=== PATIENT | male | born 1970 ===

== ENCOUNTER 2016-05-31 13:37 | Emergency (ER) | payer BC, OTHER ==
[2016-05-31 17:44] VITALS: BP 137/85
--- NOTE | 2016-05-31 18:13 | UC ---
Lower Extremity/Ankle HPI - HPI Summary HPI Summary: patient was kicking a ball, hit the left 5th ote on the wall, it was out of place, and causing a lot of pain, patient pulled it back into place and heard a snap. large amount of bruising and swelling. Able to walk on the foot - History of Current Complaint Chief Complaint: UCLowerExtremity Stated Complaint: LEFT FOOT PAIN Time Seen by Provider: 05/31/16 18:04 Hx Obtained From: Patient Onset/Duration: Sudden Onset, Lasting Days Severity Initially: Severe Severity Currently: Moderate Pain Intensity: 6 Pain Scale Used: 0-10 Numeric Aggravating Factor(s): Standing, Ambulation Alleviating Factor(s): Rest Able to Bear Weight: Yes - Allergies/Home Medications Allergies/Adverse Reactions: Allergies Allergy/AdvReac Type Severity Reaction Status Date / Time No Known Allergies Allergy Verified 05/31/16 17:43 Home Medications: Home Medications Naproxen TAB* [Naprosyn TAB*] 500 mg PO Q8H PRN 05/31/16 [History Confirmed 07/16] PMH/Surg Hx/FS Hx/Imm Hx Previously Healthy: Yes - Surgical History Surgical History: Yes Surgery Procedure, Year, and Place: TONSILECTOMY. SLAP TEAR REPAIR - Family History Known Family History: Negative: Cardiac Disease, Hypertension - Social History Alcohol Use: Rare Substance Use Type: None Smoking Status (MU): Never Smoked Tobacco Review of Systems Constitutional: Negative Skin: Negative Eyes: Negative ENT: Negative Respiratory: Negative Cardiovascular: Negative Gastrointestinal: Negative Genitourinary: Negative Motor: Negative Neurovascular: Negative Musculoskeletal: Arthralgia, Edema, Myalgia Neurological: Negative Psychological: Negative All Other Systems Reviewed And Are Negative: Yes Physical Exam Triage Information Reviewed: Yes Appearance: Well-Appearing, Well-Nourished, Pain Distress Vital Signs: Initial Vital Signs Temp 98.2 F 05/31/16 17:38 Pulse 86 05/31/16 17:38 Resp 16 05/31/16 17:38 BP 137/85 05/31/16 17:38 Pulse Ox 100 05/31/16 17:38 Vital Signs Reviewed: Yes Eye Exam: Normal Eyes: Positive: Conjunctiva Clear ENT Exam: Normal ENT: Positive: Normal ENT inspection, Pharynx normal, TM bulging Dental Exam: Normal Neck exam: Normal Neck: Positive: Supple, Nontender, No Lymphadenopathy Respiratory Exam: Normal Respiratory: Positive: Chest non-tender, Lungs clear, Normal breath sounds Cardiovascular Exam: Normal Cardiovascular: Positive: RRR, No Murmur, Pulses Normal Abdominal Exam: Normal Abdomen Description: Positive: Nontender, No Organomegaly, Soft Bowel Sounds: Positive: Present Musculoskeletal Exam: Normal Musculoskeletal: Positive: ROM Limited @ - left 5th toe, Edema @ Neurological Exam: Normal Neurological: Positive: Alert Psychological Exam: Normal Skin: Positive: significant lesion(s) - bruising on top of left foot Lower Extremity Course/Dx - Course Course Of Treatment: hx obtained. exam performed, medication reviewed. xray obtained. patient self medicated for pain before arrival, patients toe matt taped. - Differential Dx/Diagnosis Differential Diagnosis/HQI/PQRI: Contusion, Dislocation, Fracture (Closed), Sprain, Strain Provider Diagnoses: fracture of left 5th toe Discharge - Discharge Plan Condition: Stable Disposition: HOME Patient Education Materials: Toe Fracture (ED) Additional Instructions: riest ice compress and elevate. keep it matt taped for support. ibuprofen and tylenol for pain and welling.
--- NOTE | 2016-05-31 18:55 | RAD ---
Indication: Fourth and fifth metatarsal phalangeal joint region pain following kicking injury. Reported dislocation at the fifth toe with subsequent reduction. Comparison: None. Technique: 3 views of the LEFT fourth and fifth toes Report: Normal articular alignment. Oblique fracture through the fifth proximal phalanx from the proximal metaphysis of the distal metaphysis with only minimal foreshortening. Overlying soft tissue swelling. Negative for additional fracture. IMPRESSION: Nonarticular fracture with mild foreshortening fifth proximal phalanx.
== END 2016-05-31 19:43 | disposition home or self-care (01) ==
LOC: UCCORT 13:37
DX: S92.515A Nondisplaced fracture of proximal phalanx of left lesser toe(s), initial encounter for closed fracture (principal); W22.09XA Striking against other stationary object, initial encounter; Y93.6A Activity, physical games generally associated with school recess, summer camp and children; Y92.9 Unspecified place or not applicable
CPT/HCPCS: 99203; G0463